=== PATIENT | female | born 1995 | race Hispanic/Latino ===

== ENCOUNTER 2018-07-12 18:17 | Emergency (ER) | payer OTHER, SELFPAY ==
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
--- NOTE | 2018-07-12 19:30 | RAD ---
RADIOGRAPH CHEST 2 VIEWS: DATE: 07/12/2018 HISTORY: Posttraumatic chest pain FINDINGS: There is no airspace density, pulmonary edema, pleural effusion, or pneumothorax. There is a dextrosc oliosis of the midthoracic spine. Mild compensatory left lateral curvature of lumbar spine. Cardiac size at upper limits of normal or mildly enlarged. IMPRESSION: 1. No acute pulmonary findings. 2. S-shaped scoliosis
== END 2018-07-12 19:49 | disposition home or self-care (01) ==
LOC: ERS 18:17
DX: S20.02XA Contusion of left breast, initial encounter (principal); S09.90XA Unspecified injury of head, initial encounter; V49.9XXA Car occupant (driver) (passenger) injured in unspecified traffic accident, initial encounter
CPT/HCPCS: 70450; 71046

== ENCOUNTER 2020-01-25 22:53 | Emergency (ER) | payer BC, SELFPAY ==
--- NOTE | 2020-01-26 09:05 | RAD ---
CHEST ONE VIEW: INDICATIONS: History of chest pain. COMPARISON: Prior PA and lateral chest dated 07/12/2018. FINDINGS: The visualized lungs are clear. Heart size is at the upper limits of normal. Thoracolumbar scoliosis is similar. No pleural effusion or pneumothorax is evident. IMPRESSION: No acute cardiopulmonary abnormality. POS: BH
--- NOTE | 2020-02-01 16:16 | EKG ---
Test Reason : Blood Pressure : / mmHG Vent. Rate : 063 BPM Atrial Rate : 063 BPM P-R Int : 152 ms QRS Dur : 068 ms QT Int : 410 ms P-R-T Axes : 008 046 033 degrees QTc Int : 419 ms Sinus rhythm with marked sinus arrhythmia Otherwise normal ECG Confirmed by RADHA ARANA M.D. ([id number]), scientific publications editor MARYJANE YEN ([id number] on 02/01/2020 4:16:20 PM Referred By: Confirmed By:RADHA ARANA M.D.
== END 2020-01-26 01:37 | disposition home or self-care (01) ==
LOC: ERS 22:53
DX: U07.1 COVID-19 (principal); R07.89 Other chest pain; Z79.899 Other long term (current) drug therapy
CPT/HCPCS: 71045; 93005

== ENCOUNTER 2020-11-10 10:47 | Emergency (ER) | payer OTHER ==
[2020-11-11 00:27] LABS: SARS-CoV-2 PCR by NAA Not Detected (NotDetected)
== END 2020-11-10 12:10 | disposition home or self-care (01) ==
LOC: ERS 10:47
DX: R06.00 Dyspnea, unspecified (principal); R05 Cough; R51.9 Headache, unspecified; Z20.822 Contact with and (suspected) exposure to COVID-19
CPT/HCPCS: 99283; U0003; U0005

== ENCOUNTER 2023-04-02 11:52 | Emergency (ER) | payer SELFPAY ==
[2023-04-02] MEDS ORDERED: Ibuprofen 800 MG TAB ONE (12:23)
== END 2023-04-02 12:56 | disposition home or self-care (01) ==
LOC: ERS 11:52
DX: M25.522 Pain in left elbow (principal); X50.0XXA Overexertion from strenuous movement or load, initial encounter

== ENCOUNTER 2025-02-28 12:43 | Emergency (ER) | payer SELFPAY ==
[2025-02-28] MEDS ORDERED: Ondansetron PF 4 MG/2 ML Vial ONE (13:27)
[2025-02-28] MEDS ORDERED: Acetaminophen 500 MG TAB ONE (13:27)
== END 2025-02-28 14:11 | disposition home or self-care (01) ==
LOC: ERS 12:43
DX: J11.1 Influenza due to unidentified influenza virus with other respiratory manifestations (principal)
CPT/HCPCS: 87081; 87428; 87430; 96361; 96374; J2405